=== PATIENT | female | born 1980 | race Caucasian/White ===

== ENCOUNTER 2020-05-30 14:47 | Emergency (ER) | payer BC, SELFPAY ==
[2020-05-30 14:49] VITALS: BP 120/76; PULSE 69; RESP 18; TEMP 36.9; O2SAT 100
--- NOTE | 2020-05-30 15:00 | ED.WOUNDLAC ---
HPI - Wound/Laceration General Chief Complaint: Wound/Laceration Stated Complaint: left pinky laceration Time Seen by Provider: 05/30/20 14:52 History of Present Illness HPI narrative: Patient is a 39-year-old female who presents ER after suffering a laceration to her left fifth digit. She was at a junk yard when she cut on a piece of metal. Unknown last tetanus shot. No numbness or tingling. Normal range of motion. Denies any other injury. Related Data Home Medications Medication Instructions Recorded Confirmed levothyroxine 05/30/20 Allergies Allergy/AdvReac Type Severity Reaction Status Date / Time No Known Allergies Allergy Verified 05/30/20 15:01 Review of Systems Musculoskeletal: Musculoskeletal: Denies arthralgias and Denies joint swelling Integumentary/Breasts: Comments: Left fifth digit laceration. Neurologic: Denies focal weakness and Denies numbness PMFSH Past Medical History Medical History (Updated 05/30/20 @ 15:38 by Miles Avalos MD) Healthy female adult Surgical History Surgical History (Updated 05/30/20 @ 15:01 by Miles Avalos MD) No history of previous surgery Social History Social History (Updated 05/30/20 @ 15:01 by Miles Avalos MD) Smoking status: Never smoker Exam Narrative: Exam Narrative: GENERAL: Well-appearing, well-nourished, and in no acute distress. HEAD: Normocephalic, atraumatic. EXTREMITIES: Focused exam left hand reveals a 2 cm laceration over the ulnar aspect of the distal palmar aspect of the finger. Sharp sensation intact using an 18-gauge needle. Range of motion intact at the DIP where the laceration crosses. SKIN: Warm, dry. Laceration as noted above. NEURO: Alert and oriented x3. PSYCH: Normal mood and affect. Course Vital Signs Vital signs: Vital Signs Temperature 98.4 F 05/30/20 14:49 Pulse Rate 69 05/30/20 14:49 Respiratory Rate 18 05/30/20 14:49 Blood Pressure 120/76 05/30/20 14:49 Pulse Oximetry 100 05/30/20 14:49 Temperature 98.4 F 05/30/20 14:49 Pulse Rate 69 05/30/20 14:49 Respiratory Rate 18 05/30/20 14:49 Blood Pressure 120/76 05/30/20 14:49 Pulse Oximetry 100 05/30/20 14:49 Procedures Laceration Laceration 1: Date: 05/30/20 Time: 15:20 Site: other (5th digit) Side (If applicable): left Size (cm): 2 Description: linear and clean Depth: simple, single layer Local Anesthetic: lidocaine 1% and with epi Amount of anesthesia used (mL): 1 Pre-repair: irrigated extensively ====== Skin Level ====== Skin layer closed with: nylon Size (cm): 5-0 Number of sutures: 7 Technique: simple, interrupted ====== Subcutaneous Layer ====== ====== Muscle Layer ====== ====== Tendon Layer ====== Discharge Plan Discharge Clinical Impression: Laceration Patient Disposition: Home, Self-Care Condition: Stable Instructions: Care For Your Stitches (ED), Laceration (ED) Additional Instructions: You will need to have your sutures removed in 14 days. Return to the ER if your finger is red and hot, the wound is draining pus, you develop fever over 100.4 ?F, or you have additional concerns. Prescriptions: No Action levothyroxine RF: 0 Follow-up/Referrals: UNKNOWN,DOCTOR [Primary Care Provider] - 2 Weeks
[2020-05-30] MEDS: TETANUS,DIPHTHERIA,AC PERTUSSIS ADULT (0.5 ML) BOOSTRIX IM (15:07)
== END 2020-05-30 15:45 | disposition home or self-care (01) ==
PROVIDERS: Emergency Provider Emergency Medicine
DX: S61.217A Laceration without foreign body of left little finger without damage to nail, initial encounter (principal); Z23 Encounter for immunization; W26.9XXA Contact with unspecified sharp object(s), initial encounter
CPT/HCPCS: 12001; 90471; 90715; 99282

== ENCOUNTER 2024-12-09 07:21 | Emergency (ER) | payer BC, SELFPAY ==
[2024-12-09 07:25] VITALS: BP 120/69; PULSE 68; RESP 20; TEMP 36.4; O2SAT 100
--- NOTE | 2024-12-09 07:39 | ED.GENADULT ---
HPI - General Adult General Chief complaint: Skin/Abscess/Foreign Body Stated complaint: rash on neck Time Seen by Provider: 12/09/24 07:33 History of Present Illness HPI narrative: 44-year-old female presenting to the emergency department for evaluation for poison jael rash to face ear and arm. Patient had an exposure last week and initially had a rash on her leg that is beginning to resolve then patient had a 2nd rash pop up on face and left ear. Related Data Home Medications ?Medication ?Instructions ?Recorded ?Confirmed ?Last Taken ?Type levothyroxine 05/30/20 Unknown History Allergies Allergy/AdvReac Type Severity Reaction Status Date / Time erythromycin base Allergy Unknown Verified 12/09/24 07:25 Review of Systems Review of Systems: All systems reviewed & are unremarkable except as noted in HPI and below PMFSH Past Medical History Medical History (Updated 12/09/24 @ 07:42 by Abdirashid Toledo MD) Healthy female adult Surgical History Surgical History (Updated 05/30/20 @ 15:01 by Miles Avalos MD) No history of previous surgery Social History Social History (Updated 05/30/20 @ 15:01 by Miles Avalos MD) Smoking status: Never smoker Exam Narrative: APPEARANCE: Well appearing, no pain, no distress, well-nourished. HEAD: normocephalic, atraumatic. EYES: PERRLA/EOMI, conjunctivae clear. NOSE: Normal no drainage EARS:TMS clear with good light reflex. THROAT: Pharynx clear, no exudate. NECK: Supple. No adenopathy, no masses. RESPIRATORY: Airway patent, respirations nonlabored. Clear to auscultation bilaterally, no rales, rhonchi, wheezing. CARDIOVASCULAR: Regular rate and rhythm without murmurs rubs or gallops. ABDOMINAL: Soft, nontender, nondistended, normal bowel sounds MUSCULOSKELETAL: Moves all extremities. Strength/ROM intact, No edema, No calf tenderness. NEURO: Alert. Cranial nerves II through XII intact. Good gait. Good coordination SKIN: Allergic dermatitis to face and left ear right forearm Course Vital Signs Vital signs: Vital Signs Temperature 97.6 F 12/09/24 07:25 Pulse Rate 68 12/09/24 07:25 Respiratory Rate 20 12/09/24 07:25 Blood Pressure 120/69 12/09/24 07:25 Pulse Oximetry 100 12/09/24 07:25 Oxygen Delivery Room Air 12/09/24 07:25 Temperature 97.6 F 12/09/24 07:25 Pulse Rate 68 12/09/24 08:07 Respiratory Rate 18 12/09/24 08:07 Blood Pressure 107/75 12/09/24 08:07 Pulse Oximetry 100 12/09/24 08:07 Oxygen Delivery Room Air 12/09/24 07:25 Medical Decision Making MDM Narrative Medical decision making narrative: 44-year-old female presenting to the emergency department for evaluation for allergic dermatitis secondary to poison jael. Patient has been using triamcinolone cream and patient feels that this is not helping. Patient did request additional steroids. Risks and benefits topical versus oral steroids were discussed and patient prefers to use the oral steroids. Patient will be started on a Medrol Dosepak. Patient was encouraged close follow-up with primary care physician and patient was educated on ways to prevent worsening and further reexposure to the poison jael residence. All questions concerns were addressed. Differential Diagnosis Differential Diagnosis: Poison jael, shingles, dermatitis, cellulitis Vital Signs Vital Signs: Vital Signs Temperature 97.6 F 12/09/24 07:25 Pulse Rate 68 12/09/24 07:25 Respiratory Rate 20 12/09/24 07:25 Blood Pressure 120/69 12/09/24 07:25 Pulse Oximetry 100 12/09/24 07:25 Oxygen Delivery Room Air 12/09/24 07:25 Temperature 97.6 F 12/09/24 07:25 Pulse Rate 68 12/09/24 08:07 Respiratory Rate 18 12/09/24 08:07 Blood Pressure 107/75 12/09/24 08:07 Pulse Oximetry 100 12/09/24 08:07 Oxygen Delivery Room Air 12/09/24 07:25 Discharge Plan Discharge Clinical Impression: Allergic dermatitis due to poison jael Patient Disposition: Home Condition: Stable Instructions: Antibiotic Form, Poison Jael (ED) Additional Instructions: Medrol Dosepak as directed. Have close follow-up with your primary care physician. Patient Language: Latvian Prescriptions: New methylprednisolone [Medrol (Javier)] 4 mg tablets,dose pack See Rx Instructions .ROUTE .COMPLEX Qty: 21 0RF Rx Instructions: for 6 days No Action levothyroxine Follow-up/Referrals: UNKNOWN,DOCTOR [Primary Care Provider]
[2024-12-09 08:07] VITALS: BP 107/75; PULSE 68; RESP 18; O2SAT 100
== END 2024-12-09 08:08 | disposition home or self-care (01) ==
PROVIDERS: Emergency Provider Emergency Medicine
DX: L23.7 Allergic contact dermatitis due to plants, except food (principal)
CPT/HCPCS: 99283